=== PATIENT | female | born 1955 | race Caucasian/White ===

== ENCOUNTER → 2021-06-28 | Outpatient (CLI) | payer BC ==
[~2021-06-28] MED LIST: VIBRAMYCIN100 MG PO
== END ==
LOC: RAD 10:12
DX: R13.10 Dysphagia, unspecified (principal); K44.9 Diaphragmatic hernia without obstruction or gangrene; K22.4 Dyskinesia of esophagus
CPT/HCPCS: 74220

== ENCOUNTER → 2021-07-11 | Outpatient (CLI) | payer BC | LOC: KOH-I 09:58 | DX: F17.210 Nicotine dependence, cigarettes, uncomplicated (principal) | CPT/HCPCS: 71271 ==

== ENCOUNTER → 2022-07-26 | Outpatient (CLI) | payer BC | LOC: KOH-I 11:38 | DX: R05.9 Cough, unspecified (principal) | CPT/HCPCS: 71046 ==